=== PATIENT | female | born 1975 | race Caucasian/White ===

== ENCOUNTER 2018-10-16 15:20 | Emergency (ER) | payer MEDICARE | END 2018-10-16 16:45 | disposition home or self-care (01) | LOC: MADERS 15:20 | DX: J02.9 Acute pharyngitis, unspecified (principal) | CPT/HCPCS: 87081; 87430; 99283 ==

== ENCOUNTER 2019-03-24 20:16 | Emergency (ER) | payer MEDICARE ==
[2019-03-24] MEDS ORDERED: Lorazepam 2 MG/ML VIAL ONE (20:29)
== END 2019-03-24 20:55 | disposition home or self-care (01) ==
LOC: MADERS 20:16
DX: F41.9 Anxiety disorder, unspecified (principal); F90.9 Attention-deficit hyperactivity disorder, unspecified type; F31.9 Bipolar disorder, unspecified; Z71.6 Tobacco abuse counseling; Z79.899 Other long term (current) drug therapy
CPT/HCPCS: 93005; 96372; 99406; J2060